=== PATIENT | male | born 1960 | race Caucasian/White ===

== ENCOUNTER 2020-09-12 00:05 | Day surgery (SDC) | payer BC, SELFPAY ==
[2020-08-28 13:20] VITALS: BMI 24.0
[2020-09-12 07:32] VITALS: BP 119/73; PULSE 81; RESP 16; TEMP 36.2; O2SAT 100; BMI 23.0
--- NOTE | 2020-09-12 07:56 | WPDGICN ---
Assessment and Plan Assessment and plan (1) Encounter for screening colonoscopy: Code(s): Z12.11 - Encounter for screening for malignant neoplasm of colon Status: Acute Assessment and Plan: Patient presents for screening colonoscopy. He appears to be at average risk for colon polyps. Further recommendations will be given after colonoscopy. GI Consult Note Consult date/time: 09/12/20 07:56 HPI: Larry Yao is a 60 year old male Presents for screening colonoscopy. He states that his current weight appetite bowel movements are normal. He denies any blood in his stools. He has had no abdominal pain. His last colonoscopy was at least 10 years ago. Family history is noncontributory. Review of Systems Review of Systems: All systems reviewed & are unremarkable except as noted in HPI and below PMFSH Social History Social History Smoking status: Never smoker Alcohol intake: current Drinks per week: 1 Alcohol use details: occasional Substance use: never Substance use type: does not use Living arrangements: alone Gender identity (if verbalized by the patient): Male Spiritual care concerns: No Meds Home Medications and Allergies Home Medications Medication Instructions Recorded Confirmed Type No Home Medications 08/28/20 09/12/20 History Allergies Allergy/AdvReac Type Severity Reaction Status Date / Time No Known Allergies Allergy Unknown Verified 09/12/20 07:43 Vital Signs Vital Signs - 24 hr 09/12/20 07:32 Temperature 97.2 F L Pulse Rate 81 Respiratory Rate 16 Blood Pressure 119/73 Pulse Oximetry 100 Exam Narrative: Physical exam reveals patient be alert. Vital signs stable. HEENT exam is unremarkable. Patient is anicteric. Lungs are clear to auscultation and percussion. Heart is without murmur or extra sounds. Abdominal exam bowel sounds are present soft nontender with no organomegaly. Digital external rectal exam is normal.
[2020-09-12] MEDS: LACTATED RINGERS 1,000 ML 30 ML IV CONT (07:58)
--- NOTE | 2020-09-12 07:58 | WPDANESEPPF ---
Anes - Initial Pre Proc Eval Procedure: Operation Date: 09/12/20 08:30 Proposed Procedures p Screening Colonoscopy - Adrian Beltre MD Date/Time: 09/12/20 07:58 Surgeon: Adrian Beltre MD Pre Op Diagnosis: neoplasm screening Patient Data Age: 60 Gender: M Height: 1.8 m Weight: 74.8 kg Last Vital Signs Temp 36.2 C L 09/12/20 07:32 Pulse 81 09/12/20 07:32 Resp 16 09/12/20 07:32 BP 119/73 09/12/20 07:32 Pulse Ox 100 09/12/20 07:32 Allergies Allergy/AdvReac Type Severity Reaction Status Date / Time No Known Allergies Allergy Unknown Verified 09/12/20 07:43 Home Medications Medication Instructions Recorded Confirmed Type No Home Medications 08/28/20 09/12/20 History Patient hx anesthesia problems: none Family hx anesthesia problems: none PMFSH Surgical History Surgical History (Updated 09/12/20 @ 08:01 by Joel Haines MD) H/O inguinal hernia repair History of appendectomy Social History Social History Smoking status: Never smoker Alcohol intake: current Drinks per week: 1 Alcohol use details: occasional Substance use: never Substance use type: does not use Living arrangements: alone Gender identity (if verbalized by the patient): Male Spiritual care concerns: No Anes - Eval Final PreProcedure Day of Procedure 09/12/20 07:58 Patient weight: normal Heart: regular rate and rhythm Lungs: clear to auscultation Airway: Mallampati scale class 1 Neurological: alert and oriented Last oral intake: >/= 8 hours ASA classification: I Anesthetic plan: proceed Informed Consent: The patient's anesthetic plan and its attendant risks and benefits were discussed with the patient/family/POA. Questions were solicited and answers provided to the satisfaction of the patient/family/POA.
[2020-09-12 08:46] VITALS: BP 83/58; PULSE 69; RESP 16; O2SAT 96
[2020-09-12 08:55] VITALS: BP 88/57; PULSE 67; RESP 16; O2SAT 97
[2020-09-12 09:05] VITALS: BP 103/67; PULSE 64; RESP 16; O2SAT 100
== END 2020-09-12 09:20 | disposition home or self-care (01) ==
PROVIDERS: PCP Family Medicine Adolescent Medicine; Visit Provider Internal Medicine Gastroenterology
PROC: 0DJD8ZZ Inspection of Lower Intestinal Tract, Via Natural or Artificial Opening Endoscopic (ICD-10-PCS; CPT 45378; principal; 2020-09-12 08:30)
DX: Z12.11 Encounter for screening for malignant neoplasm of colon (principal); K64.8 Other hemorrhoids
CPT/HCPCS: 45378; J2704; J7120